=== PATIENT | male | born 1960 | race Caucasian/White ===

== ENCOUNTER 2016-04-04 13:18 | Emergency (ER) | payer BC ==
[~2016-04-04] VITALS: Ht 180.3 cm; Wt 85.3 kg
[2016-04-04 15:06] LABS: HEMATOCRIT 47.5 % (38.0-50.0); MCH 33.2 PG (29.0-34.0); MCHC 36.8 G/DL (30.0-36.0); MCV 90.1 FL (86-99); MEAN PLAT.VOLUME 9.8 uM^3 (9.0-12.4); PLATELET COUNT 156 K/uL (156-360); RBC DIS.WIDTH-CV 12.1 % (11.8-14.6); RBC DIS.WIDTH-SD 39.7 % (39-53); RED BLOOD COUNT 5.27 M/uL (4.00-5.50); WHITE BLOOD COUNT 16.3 K/uL (4.1-10.2)
[2016-04-04 15:18] LABS: CHLORIDE 104 mEq/L (99-109); POTASSIUM 4.2 mEq/L (3.7-5.4); SODIUM 141 mEq/L (136-147)
[2016-04-04 15:20] LABS: GLUCOSE 117 mg/dL (70-99)
[2016-04-04 15:21] LABS: ANION GAP 11 MEQ/L (2-14)
[2016-04-04 15:22] LABS: TOTAL BILIRUBIN 1.2 mg/dL (0.0-1.0)
[2016-04-04 15:23] LABS: ALKALINE PHOSPHATASE 69 IU/L (3-129)
[2016-04-04 15:24] LABS: GFR ESTIMATE (CALCULATED) > 59 mL/min/
[2016-04-04 15:25] LABS: UREA NITROGEN (BUN) 10 mg/dL (9-23)
[2016-04-04 16:15] LABS: LIPASE 25 U/L (1.0-51.0)
[2016-04-04 17:44] LABS: ADD MIUA? YES; BILIRUBIN NEGATIVE; BLOOD MODERATE; COLOR DK YELLOW ((YELLOW)); GLUCOSE (STRIP) NEGATIVE; KETONES 15; LEUKOCYTES TRACE; NITRITE NEGATIVE; PH, URINE 7.5 (5-8); PROTEIN (STRIP) 30; SPECIFIC GRAVITY 1.028 (1.000-1.030); UROBILINOGEN 0.2 MG/DL (0.2-1.0)
[2016-04-04 18:15] LABS: BACTERIA 1+; CASTS NONE SEEN /LPF; CRYSTALS NONE SEEN; EPITHELIAL CELLS RARE; MUCUS 2+; UCUL ADDED? NO; WHITE BLOOD CELLS 0-5 /HPF (0-5)
[2016-04-04] MEDS ORDERED: CIPRO500 MG PO (18:22)
[2016-04-04] MEDS ORDERED: MOTRIN800 MG PO (18:22)
[2016-04-04] MEDS ORDERED: PERCOCET 5/31 TABLET PO (18:22)
[2016-04-04 19:29] VITALS: BP 174/101
== END 2016-04-04 19:29 | disposition home or self-care (01) ==
LOC: EME 13:18
DX: N20.1 Calculus of ureter (principal); N39.0 Urinary tract infection, site not specified; F17.200 Nicotine dependence, unspecified, uncomplicated
CPT/HCPCS: 74176; 80053; 81003; 83690; 85027; 99281; 99285; J1885; J2405; J3010; J7030